=== PATIENT | female | born 1980 | race Caucasian/White ===

== ENCOUNTER → 2021-09-24 17:45 | Outpatient (CLI) | payer OTHER, MEDICAID, SELFPAY | PROVIDERS: Family Provider Family Medicine; PCP Family Medicine; Visit Provider Nurse Practitioner Critical Care Medicine | DX: R30.0 Dysuria (principal) | CPT/HCPCS: 81002; 81025; 87086 ==

== ENCOUNTER 2022-08-23 02:04 | Emergency (ER) | payer OTHER, MEDICAID, SELFPAY ==
[2022-08-23 02:22] VITALS: BP 121/61; PULSE 116; RESP 18; TEMP 36.8; O2SAT 100; BMI 26.8
--- NOTE | 2022-08-23 02:35 | ED.NAVMDI ---
HPI - Nausea/Vomiting/Diarrhea General Chief complaint: Nausea/Vomiting/Diarrhea Stated complaint: VOMITING, ABD PAIN Time Seen by Provider: 08/23/22 02:19 Source: patient Mode of arrival: Ambulatory Limitations: no limitations History of Present Illness HPI Narrative: Patient is a 41-year-old female. Patient states that she is but she does not know exactly how far along she is. She states she is due with the end of next month. She does have an OB doctor that she sees on a regular basis. States she just saw her OB doctor recently for a checkup. She is here for evaluation abdominal discomfort but she describes it as in her upper abdomen and more burning in her chest and heartburn/reflux because she is been vomiting. She is not having any abdominal cramping. No loss of fluid. No vaginal bleeding. She is constipated which she did talk with her OB doctor about and her doctor was supposed to be sending and some medications for her. She states that the vomiting has been going on for the past 24-36 hours. Related Data Home Medications Medication Instructions Recorded Confirmed buprenorphine 8 mg-naloxone 2 mg 1 film buccal DAILY 09/24/21 09/24/21 sublingual film (Suboxone) Previous Rx's Medication Instructions Recorded fluconazole 150 mg tablet 150 mg PO Q3D 2 doses #2 tabs 09/24/21 omeprazole 20 mg tablet,delayed 20 mg PO DAILY #30 tabs 09/24/21 release ondansetron 4 mg disintegrating 4 mg PO Q8H PRN nausea and 09/24/21 tablet vomiting #14 tabs Allergies Allergy/AdvReac Type Severity Reaction Status Date / Time amoxicillin Allergy Unknown Verified 08/23/22 02:39 Review of Systems Constitutional Constitutional: Reports system reviewed and no additional complaints, except as documented Gastrointestinal Gastrointestinal: Reports system reviewed and no additional complaints, except as documented Genitourinary Genitourinary: Reports system reviewed and no additional complaints, except as documented Patient History Social History Smoking Status: Current every day smoker Smoking Status: Current every day smoker Exam Initial Vital Signs Initial Vital Signs: Vital Signs Temperature 98.2 F 08/23/22 02:22 Pulse Rate 116 H 08/23/22 02:22 Respiratory Rate 18 08/23/22 02:22 Blood Pressure 121/61 08/23/22 02:22 Pulse Oximetry 100 04/12/23 02:22 Oxygen Delivery Method Room Air 08/23/22 02:22 HENMT Head: normal to inspection and normocephalic Resp Effort & Inspection: normal respiratory effort Auscultation: clear to auscultation bilaterally Cardio Rate: tachycardic Rhythm: regular rhythm GI Other: Gravid uterus, no tenderness to palpation Skin General: no rashes or lesions noted Neuro General: patient alert, patient awake and moves all extremities Extrem General: capillary refill normal Course Orders Ordered: ED Orders 08/23/22 02:22 Complete Blood Count AUTO DIFF Stat Comprehensive Metabolic Panel Stat Lipase Stat 08/23/22 02:52 EKG-12 Lead Stat Discontinued Medications Al Hydrox/Mg Hydrox/Simethicone 20 ml/ Lidocaine HCl 15 ml 0 ml PO NOW ONE Stop: 08/23/22 02:35 Last Admin: 08/23/22 02:42 Dose: 20 ml Documented By: ALEJANDRA Sodium Chloride (Normal Saline 0.9%) 1,000 mls @ 1,000 mls/hr IV BOLUS ONE Stop: 08/23/22 03:20 Last Infusion: 08/23/22 03:40 Dose: 0 mls/hr Documented By: Admin: 08/23/22 02:39 Dose: 1,000 mls/hr Documented By: ALEJANDRA Sodium Chloride (Normal Saline 0.9%) 1,000 mls @ 1,000 mls/hr IV BOLUS ONE Stop: 08/23/22 04:08 Last Infusion: 08/23/22 04:39 Dose: 0 mls/hr Documented By: Admin: 08/23/22 03:40 Dose: 1,000 mls/hr Documented By: JASON Ondansetron HCl (Ondansetron 4 Mg Odt) 4 mg PO NOW ONE Stop: 08/23/22 02:21 Last Admin: 08/23/22 04:01 Dose: Not Given Documented By: JASON Ondansetron HCl (Ondansetron 4 Mg/2 Ml Inj) 4 mg IV NOW ONE Stop: 08/23/22 02:22 Last Admin: 08/23/22 02:40 Dose: 4 mg Documented By: ALEJANDRA Ondansetron HCl (Ondansetron 4 Mg Odt Prepack) 1 bottle MISC SEEINSTR ONE Stop: 08/23/22 04:57 Last Admin: 08/23/22 05:09 Dose: 1 bottle Documented By: SCOOBY Pantoprazole Sodium (Pantoprazole 40 Mg Vial) 40 mg IV NOW ONE Stop: 08/23/22 02:35 Last Admin: 08/23/22 02:44 Dose: 40 mg Documented By: ALEJANDRA Vital Signs Vital signs: Vital Signs - 8 hr 08/23/22 02:22 08/23/22 02:38 08/23/22 03:00 Temperature 98.2 F Pulse Rate 116 H 113 H 81 Respiratory Rate 18 Blood Pressure 121/61 Pulse Oximetry 100 98 85 L Oxygen Delivery Method Room Air 08/23/22 03:30 Temperature Pulse Rate 117 H Respiratory Rate Blood Pressure Pulse Oximetry 99 Oxygen Delivery Method MDM - Nausea/Vomiting/Diarrhea Lab Data Attestation: I reviewed the patient's lab results. 08/23/22 02:22 08/23/22 02:22 Labs: Lab Results 08/23/22 08/23/22 Range/Units 02:22 02:22 WBC 17.0 H (4.5-11.0) X10^3/uL RBC 3.50 L (4.0-5.2) X10^6/uL Hgb 9.2 L (12.0-16.0) g/dL Hct 27.8 L (36-46) % MCV 79.5 L (80-100) fL MCH 26.2 (26-34) PG MCHC 33.0 (30-36) % RDW 15.4 H (11.6-14.8) % Plt Count 347 (150-400) X10^3/uL Neut % (Auto) Not Reportable Lymph % (Auto) Not Reportable [place] % (Auto) Not Reportable Eos % (Auto) Not Reportable Baso % (Auto) Not Reportable Lymph # (Auto) Not Reportable [place] # (Auto) Not Reportable Baso # (Auto) Not Reportable Total Counted 100 Seg Neutrophils % 85.0 H (38-70) % Band Neutrophils % 2.0 L (3-7) % Lymphocytes % (Manual) 10.0 L (25-45) % Monocytes % (Manual) 2.0 (2-11) % Basophils % (Manual) 1.0 (0-1) % Neutrophils # (Manual) 73750 H (7374-2258) /uL RBC Morphology See below Anisocytosis 1+ H Sodium 133 L (137-145) mmol/L Potassium 3.6 (3.4-5.1) mmol/L Chloride 100 (98-107) mmol/L Carbon Dioxide 27 (22-32) mmol/L BUN 6 L (7-17) mg/dL Creatinine 0.54 (0.52-1.04) mg/dL Estimated GFR > 60 (>60) mL/min BUN/Creatinine Ratio 11.1 (6-22) Glucose 117 H (70-100) mg/dL Calcium 8.4 (8.4-10.2) mg/dL Total Bilirubin 0.9 (0.2-1.3) mg/dL AST 18 (14-36) IU/L ALT 15 (<35) IU/L Alkaline Phosphatase 135 H (38-126) U/L Total Protein 6.9 (6.3-8.2) g/dL Albumin 3.4 L (3.5-5.0) g/dL Globulin 3.5 (1.7-4.1) g/dL Albumin/Globulin Ratio 1.0 (1.0-2.8) Lipase 33 (23-300) U/L Urine Dip Bedside Urine Glucose Negative Bedside Urine Bilirubin - Negative Bedside Urine Ketone +++ 80 Urine Specific [place] 1.015 Bedside Urine Occult Blood - Negative Bedside Urine pH 7.5 Bedside Urine Protein - Negative Bedside Urine Urobilinogen - Negative Bedside Urine Nitrite - Negative Bedside Urine Leukocytes - Negative Esterase ECG Data Attestation: I personally reviewed and interpreted this ECG as follows: Interpretation: Sinus tachycardia Ventricular rate 106 Normal axis Normal QRS No ST T wave changes Discharge Plan Departure Patient Disposition: Home Clinical Impression: Nausea and vomiting during Instructions: DI for Nausea -- Adult, DI for Vomiting -- Adult Activity Restrictions/Additional Instructions: I recommend that you continue to take all of your medications as directed. It is important that you continue to follow-up with your OB provider. Be sure that you were staying hydrated. Return to the emergency department for new symptoms. Prescriptions: No Action buprenorphine-naloxone [Suboxone] 8-2 mg film 1 film buccal DAILY ondansetron 4 mg tablet,disintegrating 4 mg PO Q8H PRN (Reason: nausea and vomiting) Qty: 14 0RF omeprazole 20 mg tablet,delayed release (DR/EC) 20 mg PO DAILY Qty: 30 0RF fluconazole 150 mg tablet 150 mg PO Q3D Qty: 2 0RF Referrals: Annabelle Mejia MD [Primary Care Provider] - Stand Alone Forms: Patient Portal/API
[2022-08-23 02:38] VITALS: PULSE 113; O2SAT 98
[2022-08-23] MEDS: SODIUM CHLORIDE 0.9% 1,000 ML 1000 ML IV ×2 (02:39→03:40)
[2022-08-23] MEDS: ONDANSETRON 4 MG/2 ML INJ IV (02:40)
[2022-08-23] MEDS: MAG HYDROX/ALUMINUM/SIMETH SUS 20 ML, LIDOCAINE VISCOUS 2% 15 ML PO (02:42)
[2022-08-23] MEDS: PANTOPRAZOLE 40 MG VIAL IV (02:44)
[2022-08-23 02:46] LABS: Add Manual Diff / Slide Review YES; Hematocrit 27.8 % (36-46); Hemoglobin 9.2 g/dL (12.0-16.0); Mean Corpuscular Hemoglobin 26.2 PG (26-34); Mean Corpuscular Volume 79.5 fL (80-100); Platelet Count 347 X10^3/uL (150-400); Red Cell Distribution Width 15.4 % (11.6-14.8)
[2022-08-23 02:47] LABS: Alanine Aminotransferase 15 IU/L (<35); Albumin 3.4 g/dL (3.5-5.0); Alkaline Phosphatase 135 U/L (38-126); Aspartate Aminotransferase 18 IU/L (14-36); BUN Creatinine Ratio 11.1 (6-22); Bilirubin Total 0.9 mg/dL (0.2-1.3); Blood Urea Nitrogen 6 mg/dL (7-17); Calcium 8.4 mg/dL (8.4-10.2); Carbon Dioxide 27 mmol/L (22-32); Chloride 100 mmol/L (98-107); Estimated Glomerular Filt Rate > 60 mL/min (>60); Globulin 3.5 g/dL (1.7-4.1); Glucose 117 mg/dL (70-100); HEMOLYSIS < 15 (0-50); Lipase 33 U/L (23-300); Potassium 3.6 mmol/L (3.4-5.1); Sodium 133 mmol/L (137-145); Total Protein 6.9 g/dL (6.3-8.2)
[2022-08-23 03:00] VITALS: PULSE 81; O2SAT 85
[2022-08-23 03:30] VITALS: PULSE 117; O2SAT 99
[2022-08-23 03:57] LABS: Total Cells Counted 100
[2022-08-23 03:58] LABS: Anisocytosis 1+; Neutrophils Absolute Manual 14790 /uL (3000-5900)
[2022-08-23] MEDS: ONDANSETRON 4 MG ODT PREPACK 1 BOTTLE MISC (05:09)
== END 2022-08-23 05:18 | disposition home or self-care (01) ==
PROVIDERS: Emergency Provider Emergency Medicine; Family Provider Family Medicine; PCP Family Medicine
DX: O21.9 Vomiting of pregnancy, unspecified (principal); O26.899 Other specified pregnancy related conditions, unspecified trimester; R10.10 Upper abdominal pain, unspecified; Z3A.00 Weeks of gestation of pregnancy not specified
CPT/HCPCS: 36415; 80053; 81003; 83690; 85007; 85025; 93005; 96374; 96375; 99284; C9113; J2405